=== PATIENT | female | born 1990 | race Hispanic/Latino ===

== ENCOUNTER 2017-09-02 08:08 | Emergency (ER) | payer OTHER ==
[2017-09-02 08:58] LABS: Basophils % (Auto) 0.6 % (0.0-1.8); Eosinophils # (Auto) 0.2 K/mm3 (0.0-0.4); Eosinophils % (Auto) 2.8 % (0.0-4.3); Hematocrit 32.3 % (30.3-42.9); Hemoglobin 10.4 gm/dl (10.1-14.3); Lymphocytes # (Auto) 1.7 K/mm3 (1.2-5.4); Lymphocytes % (Auto) 29.1 % (13.4-35.0); Mean Corpuscular HGB Conc 32 % (30-34); Mean Corpuscular Volume 74 fl (79-97); Monocytes # (Auto) 0.4 K/mm3 (0.0-0.8); Monocytes % (Auto) 7.4 % (0.0-7.3); Platelet Count 260 K/mm3 (140-440); Red Blood Count 4.37 M/mm3 (3.65-5.03); Red Cell Distribution Width 16.4 % (13.2-15.2)
[2017-09-02 09:00] LABS: Mean Corpuscular Hemoglobin 24 pg (28-32)
[2017-09-02 09:07] LABS: BUN/Creatinine Ratio 10; Blood Urea Nitrogen 7 mg/dL (7-17); Calcium 9.4 mg/dL (8.4-10.2)
[2017-09-02 09:08] LABS: Alanine Aminotransferase 12 units/L (7-56); Albumin 3.9 g/dL (3.9-5); Hemolysis Index 1
[2017-09-02] MEDS ORDERED: DILAUDID IV ONE (10:57)
[2017-09-02] MEDS ORDERED: XYLOCAINE CARDIAC IV ONE (10:57)
[2017-09-02] MEDS ORDERED: NACL 0.9% 1000 ML 1,000 ML IV ONE (10:58)
--- NOTE | 2017-09-02 10:58 | Emergency Department Report ---
ED General Adult HPI - General Chief complaint: Abdominal Pain Stated complaint: ADDOMINAL PAIN Time Seen by Provider: 09/02/17 10:41 Source: patient, EMS (ems notes not available at time of chart dictation), RN notes reviewed Mode of arrival: Wheelchair Limitations: Physical Limitation - History of Present Illness Initial comments: This is a 27-year-old female who is unknown to this provider. Primary care physician was in [place] Reports a past history of , "bladder reflux". Presents to the ER with a complaint of abdominal pain. The abdominal pain started 2:00 in the morning, in the bilateral lower quadrants, subsided and then got worse. She reports that her last menstrual period is August 13. There is associated nausea, but no active vomiting, no urinary symptoms, patient denies symptomatic vaginal discharge and indicates that she is defecating normally. Reports that her symptoms today feel different and dissimilar to her bladder reflux. -: Gradual Location: abdomen Radiation: abdomen Quality: burning, stabbing, aching Consistency: intermittent Improves with: rest Worsens with: movement Associated Symptoms: loss of appetite, malaise, nausea/vomiting, syncope ( patient reports near syncope), weakness. denies: confusion, chest pain, cough, diaphoresis, fever/chills, headaches, rash, seizure, shortness of breath - Related Data Previous Rx's Medication Instructions Recorded Last Taken Type Acetaminophen [Tylenol Arthritis] 650 mg PO Q6HR PRN #30 tablet.er 09/02/17 Unknown Rx Ondansetron [Zofran Odt] 4 mg PO Q8HR PRN #20 tab.rapdis 09/02/17 Unknown Rx oxyCODONE [Roxicodone] 5 mg PO Q6HR PRN #15 tablet 09/02/17 Unknown Rx Allergies Allergy/AdvReac Type Severity Reaction Status Date / Time No Known Allergies Allergy Verified 09/02/17 11:52 ED Review of Systems ROS: Stated complaint: ADDOMINAL PAIN Other details as noted in HPI Comment: All other systems reviewed and negative ED Past Medical Hx - Past Medical History Previous Medical History?: Yes Hx Hypertension: Yes Additional medical history: hyperthyroidism, bladder reflux - Surgical History Past Surgical History?: Yes Additional Surgical History: Tubiligation 2011 - Social History Smoking Status: Current Every Day Smoker Substance Use Type: None - Medications Home Medications: Home Medications Medication Instructions Recorded Confirmed Last Taken Type Acetaminophen [Tylenol Arthritis] 650 mg PO Q6HR PRN #30 tablet.er 09/02/17 Unknown Rx Ondansetron [Zofran Odt] 4 mg PO Q8HR PRN #20 tab.rapdis 09/02/17 Unknown Rx oxyCODONE [Roxicodone] 5 mg PO Q6HR PRN #15 tablet 09/02/17 Unknown Rx ED Physical Exam - General Limitations: No Limitations, Physical Limitation General appearance: alert, in no apparent distress - Head Head exam: Present: atraumatic, normocephalic - Eye Eye exam: Present: normal appearance - ENT ENT exam: Present: normal exam, normal orophraynx, mucous membranes moist, normal external ear exam - Neck Neck exam: Present: normal inspection, full ROM - Respiratory Respiratory exam: Present: normal lung sounds bilaterally. Absent: respiratory distress - Cardiovascular Cardiovascular Exam: Present: regular rate, normal rhythm, normal heart sounds. Absent: systolic murmur, diastolic murmur, rubs, gallop - GI/Abdominal GI/Abdominal exam: Present: soft, tenderness, normal bowel sounds, other (there is suprapubic and bilateral lower quadrant tenderness. There is no rebound, guarding or peritoneal signs). Absent: distended, guarding, rebound, rigid, pulsatile mass - External exam: Present: normal external exam Speculum exam: Present: normal speculum exam Bi-manual exam: Present: adnexal tenderness, other (right-sided adnexal tenderness. Escorted by ER meeting facilitator rajat cruz). Absent: cervical motion tendernes, adnexal mass, uterine enlargement, uterine tenderness - Extremities Exam Extremities exam: Present: normal inspection, full ROM, normal capillary refill. Absent: pedal edema, joint swelling, calf tenderness - Back Exam Back exam: Present: normal inspection, full ROM. Absent: paraspinal tenderness , vertebral tenderness - Neurological Exam Neurological exam: Present: alert, oriented X3, CN II-XII intact, other ( Extraocular movements intact. Tongue midline. No facial droop. Facial sensation intact to light touch in the V1, V2, V3 distribution bilaterally. 5 and 5 strength in 4 extremities.. Sensation is intact to light touch in 4 extremities.). Absent: motor sensory deficit - Psychiatric Psychiatric exam: Present: normal affect, normal mood - Skin Skin exam: Present: warm, dry, intact, normal color. Absent: rash ED Course Vital Signs 09/02/17 09/02/17 09/02/17 08:22 12:04 12:05 Temperature 98.2 F Pulse Rate 81 Respiratory 20 Rate Blood Pressure 111/75 105/63 O2 Sat by Pulse 97 98 97 Oximetry 09/02/17 09/02/17 09/02/17 12:06 12:08 12:10 Temperature Pulse Rate Respiratory Rate Blood Pressure 105/63 105/63 105/63 O2 Sat by Pulse 96 98 96 Oximetry 09/02/17 12:12 Temperature Pulse Rate Respiratory Rate Blood Pressure 105/63 O2 Sat by Pulse 96 Oximetry - Reevaluation(s) Reevaluation #1: 09/02/17 14:20 Differential diagnosis, including but not limited to: Ovarian cyst, urinary tract infection, perforated viscus, pelvic inflammatory disease, appendicitis, ovarian torsion Assessment and plan: 27-year-old female with abdominal pain. She is afebrile with reassuring vital signs. Has no pulmonary embolus or DVT risk factors and is low risk by well's criteria, and is perc negative Pelvic ultrasound demonstrated a right-sided hemorrhagic ovarian cyst without evidence of torsion. A CT scan of the abdomen and pelvis is pending at this time. Reevaluation #2: 09/02/17 14:52 CT scan of the abdomen and pelvis redemonstrates a right-sided ovarian cyst. No other surgical disease is noted. L he is now soft on repeat exam. The patient reports that she feels improved to go home. She was instructed to follow up with outpatient [facility]ABILITATION ASSISTANT within the next week. ED Medical Decision Making - Lab Data Result diagrams: 09/02/17 08:40 09/02/17 08:40 Vital Signs 09/02/17 09/02/17 09/02/17 08:22 12:04 12:05 Temperature 98.2 F Pulse Rate 81 Respiratory 20 Rate Blood Pressure 111/75 105/63 O2 Sat by Pulse 97 98 97 Oximetry 09/02/17 09/02/17 09/02/17 12:06 12:08 12:10 Temperature Pulse Rate Respiratory Rate Blood Pressure 105/63 105/63 105/63 O2 Sat by Pulse 96 98 96 Oximetry 09/02/17 12:12 Temperature Pulse Rate Respiratory Rate Blood Pressure 105/63 O2 Sat by Pulse 96 Oximetry Lab Results 09/02/17 09/02/17 09/02/17 Range/Units 08:40 08:40 08:40 WBC 6.0 (4.5-11.0) K/mm3 RBC 4.37 (3.65-5.03) M/mm3 Hgb 10.4 (10.1-14.3) gm/dl Hct 32.3 (30.3-42.9) % MCV 74 L (79-97) fl MCH 24 L (28-32) pg MCHC 32 (30-34) % RDW 16.4 H (13.2-15.2) % Plt Count 260 (140-440) K/mm3 Lymph % (Auto) 29.1 (13.4-35.0) % [place] % (Auto) 7.4 H (0.0-7.3) % Eos % (Auto) 2.8 (0.0-4.3) % Baso % (Auto) 0.6 (0.0-1.8) % Lymph # 1.7 (1.2-5.4) K/mm3 [place] # 0.4 (0.0-0.8) K/mm3 Eos # 0.2 (0.0-0.4) K/mm3 Baso # 0.0 (0.0-0.1) K/mm3 Seg Neutrophils % 60.1 (40.0-70.0) % Seg Neutrophils # 3.6 (1.8-7.7) K/mm3 PT (12.2-14.9) Sec. INR (0.87-1.13) Sodium 138 (137-145) mmol/L Potassium 4.2 (3.6-5.0) mmol/L Chloride 101.4 (98-107) mmol/L Carbon Dioxide 25 (22-30) mmol/L Anion Gap 16 mmol/L BUN 7 (7-17) mg/dL Creatinine 0.7 (0.7-1.2) mg/dL Estimated GFR > 60 ml/min BUN/Creatinine Ratio 10 % Glucose 86 (65-100) mg/dL Lactic Acid (0.7-2.0) mmol/L Calcium 9.4 (8.4-10.2) mg/dL Total Bilirubin 0.30 (0.1-1.2) mg/dL AST 13 (5-40) units/L ALT 12 (7-56) units/L Alkaline Phosphatase 62 (35-129) units/L Total Protein 7.4 (6.3-8.2) g/dL Albumin 3.9 (3.9-5) g/dL Albumin/Globulin Ratio 1.1 % HCG, Qual Negative (Negative) Urine Color (Yellow) Urine Turbidity (Clear) Urine pH (5.0-7.0) Ur Specific [place] (1.003-1.030) Urine Protein (Negative) mg/dL Urine Glucose (UA) (Negative) mg/dL Urine Ketones (Negative) mg/dL Urine Blood (Negative) Urine Nitrite (Negative) Urine Bilirubin (Negative) Urine Urobilinogen (<2.0) mg/dL Ur Leukocyte Esterase (Negative) Urine WBC (Auto) (0.0-6.0) /HPF Urine RBC (Auto) (0.0-6.0) /HPF U Epithel Cells (Auto) (0-13.0) /HPF Urine Bacteria (Auto) (Negative) /HPF Hyaline Casts /LPF Urine Mucus /HPF 09/02/17 09/02/17 09/02/17 Range/Units 11:02 11:05 11:05 WBC (4.5-11.0) K/mm3 RBC (3.65-5.03) M/mm3 Hgb (10.1-14.3) gm/dl Hct (30.3-42.9) % MCV (79-97) fl MCH (28-32) pg MCHC (30-34) % RDW (13.2-15.2) % Plt Count (140-440) K/mm3 Lymph % (Auto) (13.4-35.0) % [place] % (Auto) (0.0-7.3) % Eos % (Auto) (0.0-4.3) % Baso % (Auto) (0.0-1.8) % Lymph # (1.2-5.4) K/mm3 [place] # (0.0-0.8) K/mm3 Eos # (0.0-0.4) K/mm3 Baso # (0.0-0.1) K/mm3 Seg Neutrophils % (40.0-70.0) % Seg Neutrophils # (1.8-7.7) K/mm3 PT 13.4 (12.2-14.9) Sec. INR 0.97 (0.87-1.13) Sodium (137-145) mmol/L Potassium (3.6-5.0) mmol/L Chloride (98-107) mmol/L Carbon Dioxide (22-30) mmol/L Anion Gap mmol/L BUN (7-17) mg/dL Creatinine (0.7-1.2) mg/dL Estimated GFR ml/min BUN/Creatinine Ratio % Glucose (65-100) mg/dL Lactic Acid 0.70 (0.7-2.0) mmol/L Calcium (8.4-10.2) mg/dL Total Bilirubin (0.1-1.2) mg/dL AST (5-40) units/L ALT (7-56) units/L Alkaline Phosphatase (35-129) units/L Total Protein (6.3-8.2) g/dL Albumin (3.9-5) g/dL Albumin/Globulin Ratio % HCG, Qual (Negative) Urine Color Yellow (Yellow) Urine Turbidity Clear (Clear) Urine pH 7.0 (5.0-7.0) Ur Specific [place] 1.018 (1.003-1.030) Urine Protein <15 mg/dl (Negative) mg/dL Urine Glucose (UA) Neg (Negative) mg/dL Urine Ketones Neg (Negative) mg/dL Urine Blood Neg (Negative) Urine Nitrite Neg (Negative) Urine Bilirubin Neg (Negative) Urine Urobilinogen < 2.0 (<2.0) mg/dL Ur Leukocyte Esterase Neg (Negative) Urine WBC (Auto) 2.0 (0.0-6.0) /HPF Urine RBC (Auto) 1.0 (0.0-6.0) /HPF U Epithel Cells (Auto) 7.0 (0-13.0) /HPF Urine Bacteria (Auto) 1+ (Negative) /HPF Hyaline Casts 3 /LPF Urine Mucus Few /HPF - EKG Data -: EKG Interpreted by Fl EKG shows normal: sinus rhythm Rate: bradycardia - EKG Data When compared to previous EKG there are: previous EKG unavailable - Radiology Data Radiology results: report reviewed, image reviewed Transvaginal ultrasound demonstrates hemorrhagic right-sided ovarian cyst, no evidence of torsion Critical care attestation.: If time is entered above; I have spent that time in minutes in the direct care of this critically ill patient, excluding procedure time. ED Disposition Clinical Impression: Hemorrhagic ovarian cyst Disposition: TO HOME OR SELFCARE Is pt being admited?: No Does the pt Need Aspirin: No Condition: Stable Instructions: Ovarian Cyst (ED) Additional Instructions: Cultures were sent today, was also be available in the next 3-5 days. Follow- up with an HABILITATION ASSISTANT doctor within the next 5-7 days. Take the pain medication, nausea medication as directed. Avoid consumption of Motrin, ibuprofen, Naprosyn , Aleve. Return to the ER right away with new pain, worsened pain, migration of pain, fevers, chills, lethargy, irritability, projectile vomiting, change in mental status, confusion, inability to tolerate liquid feedings. Make certain to consume 6-8 cups of water a day for the next [address] scan also demonstrated incidental findings in the left kidney, follow-up with her primary care doctor or urology specialist for this within the next month. Referrals: PRIMARY CAREMD [Primary Care Provider] - 3-5 Days [facility] [Provider Group] - 3-5 Days [facility] [Provider Group] - 3-5 Days [facility] [Provider Group] - 3-5 Days
[2017-09-02 11:19] LABS: Bacteria,Urine 1+ /HPF (Negative); Bilirubin,Urine NEG (Negative); Blood,Urine NEG (Negative); Color,Urine Yellow (Yellow); Hyaline Casts,Urine 3 /LPF; Mucus,Urine FEW /HPF; Protein,Urine <15 mg/dL mg/dL (Negative); Urobilinogen,Urine < 2.0 mg/dL (<2.0)
[2017-09-02 11:37] LABS: INR 0.97 (0.87-1.13)
[2017-09-02] MEDS ORDERED: NACL 0.9% 50 ML ONE (11:48)
--- NOTE | 2017-09-02 12:06 | Ultrasound Report ---
ULTRASOUND PELVIS DUPLEX DOPPLER COMPLETE ULTRASOUND TRANSVAGINAL HISTORY: Pelvic pain. COMPARISON: None. TECHNIQUE: Transabdominal and transvaginal ultrasound with color and spectral doppler interrogation. FINDINGS: Uterus: The uterus is anteverted and measures 8.4 x 4.1 x 4.5 cm. No uterine mass. Normal cervix. Endometrium: 6.6 mm. No abnormality. Right ovary: 3.3 x 2.2 x 2.8 cm. A 2.4 cm complex cyst is identified in the right ovary which resembles a hemorrhagic cyst. Left ovary: 2.6 x 1.7 x 1.4 cm. No focal abnormality. No pelvic fluid or mass is identified. Spectral Doppler waveforms demonstrate arterial flow to both ovaries. IMPRESSION: 2.4 cm complex cyst in the right ovary which probably represents a hemorrhagic cyst. Consider followup in 6 weeks to ensure resolution.
[2017-09-02] MEDS ORDERED: TORADOL IV ONE (12:45)
[2017-09-02] MEDS ORDERED: KETALAR IV ONE (12:45)
[2017-09-02] MEDS ORDERED: KETAMINE HCL IV ONE (13:55)
--- NOTE | 2017-09-02 14:36 | Cat Scan Report ---
CT ABDOMEN PELVIS WITH CONTRAST: HISTORY: abdominal pain. COMPARISON: Pelvic ultrasound performed same day. TECHNIQUE: Helical CT in 1.25mm intervals following IV contrast. Sagittal and coronal reconstructions. FINDINGS: Lung bases: Normal. Liver: Normal. Biliary system: Normal. Pancreas: Normal. Spleen: Normal. Kidneys/ureters/bladder: The left kidney is atrophic with multiple focal areas of cortical scarring. The left kidney measures 7.4 cm in length. The right kidney measures 11.5 cm in length. No evidence for cystic disease, mass, calculus or hydronephrosis. The ureters and bladder are unremarkable. Adrenal glands: Normal. Aorta: Normal. Intestines: Within normal limits given no oral contrast was administered. Appendix: Normal. Pelvic viscera: 2.4 cm right ovarian cyst is again noted. The uterus and left adnexa are unremarkable. Ascites: None. Adenopathy: None. Musculoskeletal: Normal. IMPRESSION: 2.4 cm right ovarian cyst. Atrophic left kidney as described. No acute inflammatory process is appreciated.
[2017-09-02 15:18] VITALS: BP 106/58
== END 2017-09-02 15:02 | disposition home or self-care (01) ==
LOC: ED 08:08
DX: N83.8 Other noninflammatory disorders of ovary, fallopian tube and broad ligament (principal); I10 Essential (primary) hypertension; E05.90 Thyrotoxicosis, unspecified without thyrotoxic crisis or storm; F17.200 Nicotine dependence, unspecified, uncomplicated; Z98.51 Tubal ligation status
CPT/HCPCS: 36415; 74177; 76830; 80053; 81001; 82140; 84703; 85025; 85610; 87086; 87210; 87591; 93005; 93010; 93975; 96361; 96374; 96375; 99284; J1170; J1885; J2001; J7030; Q9967